=== PATIENT | male | born 1975 | race Caucasian/White ===

== ENCOUNTER → 2021-02-21 | Outpatient (CLI) | payer BC ==
[~2021-02-21] MED LIST: AMOX875 PO; HYDACE5 PO; PRED20 PO; RANI150 PO
[2021-02-21 12:27] LABS: BASOPHILS ABSOLUTE AUTO 0.09 K/mm3 (0.00-0.23); BASOPHILS PERCENT AUTO 1 % (0-2); EOSINOPHILS ABSOLUTE AUTO 0.23 K/mm3 (0.00-0.68); EOSINOPHILS PERCENT AUTO 3 % (0-6); Hematocrit 48.3 % (37.0-53.0); Hemoglobin 16.7 g/dL (13.5-17.5); IMMATURE GRAN ABSOLUTE AUTO 0.02 K/mm3 (0.00-0.10); IMMATURE GRAN PERCENT AUTO 0 % (0-1); LYMPHOCYTES PERCENT AUTO 38 % (21-46); MONOCYTES ABSOLUTE AUTO 0.47 K/mm3 (0.16-1.47); MONOCYTES PERCENT AUTO 7 % (4-13); Mean Corpuscular HGB Conc 34.6 g/dL (31.5-36.5); Mean Corpuscular Volume 87 fL (80-100); Mean Platelet Volume 9.3 fL (9.1-12.4); NEUTROPHILS ABSOLUTE AUTO 3.39 K/mm3 (1.96-9.15); NEUTROPHILS PERCENT AUTO 50 % (41-73); Platelet Count 283 K/mm3 (150-400); RDW Coefficient Variation 13.8 % (11.7-14.2); RDW Standard Deviation 43.6 fL (35.1-46.3); Red Blood Cell Count 5.57 M/mm3 (4.30-5.90)
[2021-02-21 12:49] LABS: Alanine Aminotransfer (ALT/SGP 52 U/L (12-78); Albumin, Blood 3.9 g/dL (3.4-5.0); Albumin/Globulin Ratio 1.1 (0.8-1.8); Alk Phos 74 U/L (40-126); Anion Gap 11 mmol/L (6-16); Aspartate Aminotrans (AST/SGOT 20 U/L (12-37); Bilirubin, Total 0.3 mg/dL (0.1-1.0); Blood Urea Nitrogen 12 mg/dL (8-24); Bun/Creatinine Ratio 10.3 (12.0-20.0); CO2, Blood 23 mmol/L (21-32); Calcium, Blood 8.5 mg/dL (8.5-10.1); Chloride, Blood 105 mmol/L (98-108); Creatinine, Blood 1.17 mg/dL (0.60-1.20); Globulin, Blood 3.7 g/dL (2.2-4.0); Glomerular Filtration Rate >60 (60-); Glucose, Blood 122 mg/dL (70-99); Potassium, Blood 4.3 mmol/L (3.5-5.5); Sodium, Blood 139 mmol/L (136-145); Total Protein, Blood 7.6 g/dL (6.4-8.2)
== END | disposition home or self-care (01) ==
LOC: LAB SHORT 12:24 → LAB 12:24
PROVIDERS: General Practice
DX: R22.40 Localized swelling, mass and lump, unspecified lower limb (principal)
CPT/HCPCS: 80053; 85025

== ENCOUNTER 2022-04-06 06:46 | Emergency (ER) | payer OTHER, BC ==
[~2022-04-06] VITALS: Ht 180.3 cm; Wt 113.4 kg
[2022-04-06 07:04] LABS: BASOPHILS ABSOLUTE AUTO 0.11 K/mm3 (0.00-0.23); BASOPHILS PERCENT AUTO 2 % (0-2); EOSINOPHILS ABSOLUTE AUTO 0.24 K/mm3 (0.00-0.68); EOSINOPHILS PERCENT AUTO 4 % (0-6); Hematocrit 50.7 % (37.0-53.0); Hemoglobin 17.4 g/dL (13.5-17.5); IMMATURE GRAN ABSOLUTE AUTO 0.03 K/mm3 (0.00-0.10); IMMATURE GRAN PERCENT AUTO 0 % (0-1); LYMPHOCYTES ABSOLUTE AUTO 2.73 K/mm3 (0.84-5.20); LYMPHOCYTES PERCENT AUTO 40 % (21-46); MONOCYTES ABSOLUTE AUTO 0.57 K/mm3 (0.16-1.47); MONOCYTES PERCENT AUTO 8 % (4-13); Mean Corpuscular HGB 29.5 pg (26.0-34.0); Mean Corpuscular HGB Conc 34.3 g/dL (31.5-36.5); Mean Corpuscular Volume 86 fL (80-100); Mean Platelet Volume 9.4 fL (9.1-12.4); NEUTROPHILS ABSOLUTE AUTO 3.13 K/mm3 (1.96-9.15); NEUTROPHILS PERCENT AUTO 46 % (41-73); Platelet Count 303 K/mm3 (150-400); RDW Coefficient Variation 13.4 % (11.7-14.2); RDW Standard Deviation 41.5 fL (35.1-46.3); White Blood Cell Count 6.81 K/mm3 (4.00-11.30)
[2022-04-06] MEDS ORDERED: XARELTO20 MG PO (07:06)
[2022-04-06] MEDS ORDERED: BUPR100 PO (07:06)
[2022-04-06 07:20] LABS: Bun/Creatinine Ratio 14.3 (12.0-20.0); Calcium, Blood 8.8 mg/dL (8.5-10.1); Creatinine, Blood 1.19 mg/dL (0.60-1.20); Potassium, Blood 4.4 mmol/L (3.5-5.5)
[2022-04-06] MEDS ORDERED: HYDR1TAB94 PO (08:45)
== END 2022-04-06 09:02 | disposition home or self-care (01) ==
LOC: ER 06:46
PROVIDERS: Emergency Medicine
DX: S06.9X1A Unspecified intracranial injury with loss of consciousness of 30 minutes or less, initial encounter (principal); S30.1XXA Contusion of abdominal wall, initial encounter; S70.02XA Contusion of left hip, initial encounter; V67.5XXA Driver of heavy transport vehicle injured in collision with fixed or stationary object in traffic accident, initial encounter; Y99.0 Civilian activity done for income or pay; F17.220 Nicotine dependence, chewing tobacco, uncomplicated; Z79.01 Long term (current) use of anticoagulants
CPT/HCPCS: 70450; 71045; 71260; 72125; 74177; 80048; 85025; J2270; J2405; Q9967

== ENCOUNTER 2024-08-22 08:35 | Emergency (ER) | payer OTHER, BC ==
[~2024-08-22] VITALS: Ht 180.3 cm; Wt 113.4 kg
[~2024-08-22 08:35] MED LIST changes: +BUPR100 PO; +HYDR1TAB94 PO; +XARELTO20 MG PO
[2024-08-22] MEDS ORDERED: Morphine Sulfate 4 MG/1 ML Injection IV ONE (08:40)
[2024-08-22 09:21] VITALS: BP 166/127
[2024-08-22] MEDS ORDERED: Ketorolac Tromethamine 30mg Vial IV ONE (09:30)
[2024-08-22] MEDS ORDERED: Methocarbamol 500 MG Tab PO ONE (09:35)
[2024-08-22] MEDS ORDERED: Diphth,Pertuss(Acell),Tet Vac 0.5 ML VIAL IM ONE (09:45)
[2024-08-22] MEDS ORDERED: Robaxin750 MG PO ×2 (09:47→10:31)
== END 2024-08-22 10:32 | disposition home or self-care (01) ==
LOC: ER 08:35
DX: S06.9X9A Unspecified intracranial injury with loss of consciousness of unspecified duration, initial encounter (principal); S01.112A Laceration without foreign body of left eyelid and periocular area, initial encounter; S00.83XA Contusion of other part of head, initial encounter; F17.220 Nicotine dependence, chewing tobacco, uncomplicated; W22.8XXA Striking against or struck by other objects, initial encounter; Z79.01 Long term (current) use of anticoagulants
CPT/HCPCS: 70450; 72125; 90471; 90715; 93005; 93010; 96374; 99284-25; A9270; J2270

== ENCOUNTER 2025-03-12 11:18 | Emergency (ER) | payer BC ==
[~2025-03-12] VITALS: Ht 180.3 cm; Wt 115.7 kg
[~2025-03-12 11:18] MED LIST changes: +Robaxin750 MG PO
[2025-03-12] MEDS ORDERED: FAMO20 PO (11:28)
[2025-03-12] MEDS ORDERED: Ondansetron HCl 2 MG / ML 2ML Vial IV PRN (11:40)
[2025-03-12 11:58] LABS: BASOPHILS ABSOLUTE AUTO 0.11 K/mm3 (0.00-0.23); BASOPHILS PERCENT AUTO 1 % (0-2); EOSINOPHILS ABSOLUTE AUTO 0.21 K/mm3 (0.00-0.68); EOSINOPHILS PERCENT AUTO 3 % (0-6); Hematocrit 49.4 % (37.0-53.0); Hemoglobin 17.0 g/dL (13.5-17.5); IMMATURE GRAN ABSOLUTE AUTO 0.01 K/mm3 (0.00-0.10); IMMATURE GRAN PERCENT AUTO 0 % (0-1); LYMPHOCYTES ABSOLUTE AUTO 2.64 K/mm3 (0.84-5.20); LYMPHOCYTES PERCENT AUTO 32 % (21-46); MONOCYTES ABSOLUTE AUTO 0.69 K/mm3 (0.16-1.47); MONOCYTES PERCENT AUTO 8 % (4-13); Mean Corpuscular HGB Conc 34.4 g/dL (31.5-36.5); Mean Corpuscular Volume 87 fL (80-100); NEUTROPHILS ABSOLUTE AUTO 4.56 K/mm3 (1.96-9.15); NEUTROPHILS PERCENT AUTO 56 % (41-73); NRBC ABSOLUTE 0.00 K/mm3 (0.00-0.02); NRBC Auto 0.0 /100 WBC (0.0-0.2); Platelet Count 295 K/mm3 (150-400); RDW Coefficient Variation 14.1 % (11.7-14.2); RDW Standard Deviation 44.5 fL (35.1-46.3)
[2025-03-12 12:27] LABS: Alanine Aminotransfer (ALT/SGP 65.0 U/L (12-78); Albumin, Blood 3.8 g/dL (3.4-5.0); Albumin/Globulin Ratio 0.9 (0.8-1.8); Anion Gap 7.0 mmol/L (3-11); Aspartate Aminotrans (AST/SGOT 32.0 U/L (12-37); Bilirubin, Total 0.8 mg/dL (0.1-1.0); Blood Urea Nitrogen 13.0 mg/dL (8-24); CO2, Blood 26.0 mmol/L (21-32); Calcium, Blood 8.8 mg/dL (8.5-10.1); Chloride, Blood 106.0 mmol/L (98-108); Creatinine, Blood 1.0 mg/dL (0.60-1.20); Globulin, Blood 4.2 g/dL (2.2-4.0); Glucose, Blood 150.0 mg/dL (70-99); Potassium, Blood 3.8 mmol/L (3.5-5.5); Sodium, Blood 135.0 mmol/L (136-145); Total Protein, Blood 8.0 g/dL (6.4-8.2)
[2025-03-12 14:30] VITALS: BP 150/107
== END 2025-03-12 15:01 | disposition home or self-care (01) ==
LOC: ER 11:18
PROVIDERS: Emergency Medicine
DX: R07.89 Other chest pain (principal); F17.220 Nicotine dependence, chewing tobacco, uncomplicated; Z86.718 Personal history of other venous thrombosis and embolism; Z79.01 Long term (current) use of anticoagulants; Z79.899 Other long term (current) drug therapy
CPT/HCPCS: 71046; 80053; 83690; 84484; 85025; 93005; 93010; 99285-25